=== PATIENT | female | born 1985 | race African-American/Black ===

== ENCOUNTER 2018-04-29 13:24 | Day surgery (SDC) | payer OTHER ==
[2018-04-28 16:42] VITALS: BMI 23.5
--- NOTE | 2018-04-29 13:15 | OP ---
Operative Note - Note: Operative Date: 04/29/18 Pre-Operative Diagnosis: Hyperthroidism, enlarged thyroid gland Operation: Sub-total thyroidectomy Findings: as dictated Implants: none Post-Operative Diagnosis: Same as Pre-op Surgeon: Caitlin Colindres Forestry [employer] Aide: Goyo David Anesthesiologist/TELESCOPE REPAIRER: Tl Segovia Anesthesia: General, Local (9 cc .25% Marcaine injected to incision at completion of case) Specimens Removed: Right and Left thyroid gland Estimated Blood Loss (mls): 75 (ml) Drains & Tubes with Location: GELY drain placed subcutaneously Fluid Volume Replaced (mls): 1 (L LR) Operative Report Dictated: Yes
--- NOTE | 2018-04-29 13:23 | SURG ---
Surgery User Support Analyst Note User Support Analyst: Goyo David PA-C (Suzy) Date of Service: 04/29/18 Diagnosis: Hyperthroidism, enlarged thyroid gland Procedure: Sub-total thyroidectomy I was present for the entirety of the operative procedure. For further detail, please refer to operative report. Visit type - Case Type Case Type: Scheduled - Emergency Emergency Visit: No - New patient This patient is new to me today: Yes Date on this admission: 04/29/18 - Critical Care Critical Care patient: No
[~2018-04-29 13:24] MED LIST: BUPIVACAINE HCL/PF 2.5 MG/ML - 30 ML VIAL IJ ONE; DEXAMETHASONE SOD PHOSPHATE 4 MG/1 ML VIAL ONE; GUM MASTIC/STORAX/MSAL/ALCOHOL 1 DRP DROPSBTL MC ONE; METOPROLOL TARTRATE 5 MG/5 ML VIAL ONE; MIDAZOLAM HCL 2 MG/2 ML SINGLE DOSE VIAL ONE; ONDANSETRON 4 MG/2 ML VIAL IVPUSH PRN; ONDANSETRON 4 MG/2 ML VIAL ONE; PROPOFOL 20 ML ONE; ROCURONIUM BROMIDE 50 MG/5 ML VIAL ONE; ceFAZolin SODIUM 1 GM VIAL ONE; fentaNYL CITRATE 250 MCG/5 ML VIAL ONE
[2018-04-29] MEDS ORDERED: oxyCODONE HCL 5 MG TABLET PO PRN (13:28)
[2018-04-29] MEDS ORDERED: DOCUSATE SODIUM 100 MG CAPSULE (FP) PO PRN (13:28)
[2018-04-29] MEDS ORDERED: LACTATED RINGERS SOLUTION 1,000 ML IV SCH ×2 (13:30→14:30)
[2018-04-29] MEDS ORDERED: LEVOTHYROXINE NA 88 MCG TABLET (FP) PO ONE ×2 (13:37)
--- NOTE | 2018-04-29 14:25 | OP ---
DATE OF OPERATION: 04/29/2018 PREOPERATIVE DIAGNOSES: Hyperthyroidism status post with enlarged thyroid gland with dysphagia and respiratory compromise. POSTOPERATIVE DIAGNOSES: Hyperthyroidism status post with enlarged thyroid gland with dysphagia and respiratory compromise. OPERATIVE PROCEDURE: Subtotal thyroidectomy. SURGEON: Jd Colindres MD GARMENT FORM ASSEMBLER: Marta Barrientos____JANEY ANESTHESIA: General endotracheal intubation. This is a 32-year-old female with a known history of hyperthyroidism, was treated with propylthiouracil and now has become euthyroid. The patient has a massively swollen thyroid gland with respiratory compromise and dysphagia. After explaining the risks and benefits, the patient was brought to the operating room. Her neck was prepped and draped and placed in extension position. The platysma muscle was opened to create a flap after the thyroid isthmus to the thyroid cartilage and the pulp and to the retrosternal notch on the bottom, and midline was opened. Substrap muscle dissection was done of the thyroid gland, and the thyroid gland was then rotated medially. The middle thyroid vein and the superior thyroid vessels were initially tied with LigaSure, and the medial rotation and downward rotation of the thyroid gland was done, at which time the recurrent laryngeal nerve was clearly identified, and then, the inferior thyroid gland was then clamped, and LigaSure was used, and the thyroid gland was then taken away from the thyroid, from the tracheal cartilage. Similarly, the other side also was done of the gland, and care was taken to avoid injury to both the recurrent laryngeal nerves, and superiorly, a piece of the thyroid gland was left behind to avoid injury to the superior laryngeal nerve and also the parathyroid gland was clearly identified and left in place. The subtotal thyroidectomy was done or near total, and after adequate hemostasis, a [place] was introduced, brought through the wound. The strap muscles were closed, and local with Marcaine was injected. Patient went to the recovery room, extubated with no complications. JD COLINDRES M.D. [id number]
[2018-04-29] MEDS ORDERED: ONDANSETRON 4 MG/2 ML VIAL ONE (14:48)
[2018-04-29] MEDS ORDERED: LEVOTHYROXINE NA 112 MCG TABLET (FP) PO ONE (15:00)
[2018-04-29] MEDS: oxyCODONE HCL 5 MG TABLET PO PRN ×2 (16:51→21:09)
[2018-04-30] MEDS: oxyCODONE HCL 5 MG TABLET PO PRN ×2 (00:56→13:53)
[2018-04-30] MEDS ORDERED: LEVOTHYROXINE NA 88 MCG TABLET (FP) PO SCH ×2 (07:00)
[2018-04-30] MEDS ORDERED: LEVOTHYROXINE NA 112 MCG TABLET (FP) PO SCH (07:00)
--- NOTE | 2018-04-30 07:52 | PN ---
Progress Note (short form) - Note Progress Note: 32yo F s/p Total thyroidectomy POD 1, pt seen and examined at bedside. Pt states that she is feeling well only complaining of some mild neck pain. Pt denies fever, chills, n/v. Pt tolerating PO and ambulating well. Last Vital Signs Temp Pulse Resp BP Pulse Ox 97.9 F 66 18 117/64 100 04/30/18 05:00 04/30/18 05:00 04/30/18 05:00 04/30/18 05:00 04/29/18 21:00 Abnormal Lab Results 04/29/18 16:00 Calcium 8.3 L PE: Gen: A&O x3 Resp: breathing comfortably Neck: incision is clean, with no erythema or discharge. Drain in place with serosanguinous drainage. Output: 85ml Problem List - Problems (1) S/P thyroidectomy Assessment/Plan: Plan -will advance diet -OOB/ambulate -D/c drain -will follow up labs if good will plan for discharge this afternoon Code(s): Z98.890 - OTHER SPECIFIED POSTPROCEDURAL STATES
[2018-04-30 08:44] LABS: BASO % 0.3 % (0-2.0); EOS % 0.5 % (0-4.5); HEMATOCRIT 34.5 % (32.4-45.2); LYMPH % 24.2 % (8-40); MCH 25.3 pg (25.7-33.7); MCHC 31.8 g/dl (32.0-36.0); MEAN CELL VOLUME 79.4 fl (80-96); MEAN PLT VOLUME 9.3 fl (7.5-11.1); MONO % 6.3 % (3.8-10.2); NEUT % 68.7 % (42.8-82.8); PLATELET COUNT 158 K/MM3 (134-434); RBC 4.34 M/mm3 (3.60-5.2); RDW 14.2 % (11.6-15.6)
[2018-04-30 08:46] LABS: ANION GAP 9 MMOL/L (8-16); BLOOD UREA NITROGEN 10 mg/dl (7-18); CHLORIDE 98 mmol/L (98-107); CO2 25 mmol/L (22-28); CREATININE 0.6 mg/dl (0.6-1.3); GLUCOSE,RANDOM 88 mg/dl (74-106); POTASSIUM 3.6 mmol/L (3.5-5.1); SODIUM 132 mmol/L (136-145)
--- NOTE | 2018-04-30 09:52 | PN ---
Progress Note (short form) - Note Progress Note: 32F POD1 s/p subtotal thyroidectomy under GA-ETT. Pt states that pain is well controlled and does not report any anesthetic complications. AVSS. Motor and sensory exam intact in bilateral lower extremities. Continue current regimen.
[2018-04-30 16:44] VITALS: BP 123/60; PULSE 83; TEMP 98.7
--- NOTE | 2018-05-02 11:28 | PATH ---
Surgical Pathology Report Patient Name: CORTEZ ROWE [facility]. Rec. #: [id number] /Age/Gender: 1985 (Age: 32) / F Account: [id number] Location: [facility] AMBULATORY Taken: 04/29/2018 Received: 04/29/2018 Reported: 05/02/2018 Physicians: Jd Colindres M.D. 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 MARGINS ARE UNINVOLVED BY CARCINOMA. EXTRATHYROIDAL EXTENSION NOT IDENTIFIED. LYMPHOVASCULAR INVASION NOT IDENTIFIED. NODULAR HYPERPLASIA WITH CHRONIC LYMPHOCYTIC THYROIDITIS ARE PRESENT. PATHOLOGIC STAGE (pTNM): pT1a pNx ALSO SEE THYROID CANCER CASE SUMMARY BELOW. This case was discussed with Dr. Sonali Colindres on May 02, 2018. Comments Thyroid: Surgical Pathology Cancer Case Summary (Based on AJCC 8 th edition) Procedure Subtotal thyroidectomy (right and left thyroid gland) Tumor Focality _x_ Unifocal Tumor Site _x_ Left lobe Tumor Size Greatest dimension (centimeters): 0.3cm Histologic Type Papillary Carcinomas _x_ Papillary carcinoma, classic (usual, conventional) Margins _x_ Uninvolved by carcinoma Angioinvasion (Vascular Invasion) _x_ Not present Lymphatic Invasion _x_ Not identified Extrathyroidal Extension _x_ Not identified Regional Lymph Nodes _x_ No lymph nodes submitted or found Pathologic Stage Classification (pTNM, AJCC 8th Edition) For Papillary, Follicular, Poorly Differentiated, Hurthle Cell and Anaplastic Thyroid Carcinoma Primary Tumor (pT) _x_ pT1a: Tumor =1 cm in greatest dimension limited to the thyroid Regional Lymph Nodes (pN) _x_ pNX: Regional lymph nodes cannot be assessed Additional Pathologic Findings _x_ Adenomatoid nodule(s) or nodular follicular disease (eg, nodular hyperplasia, goitrous thyroid) _x_ Thyroiditis (specify type): Chronic lymphocytic thyroiditis Electronically Signed Dora Coburn M.D. Microscopic Description Gross Description Received in formalin and "thyroid," is a 71 g total thyroidectomy specimen including a right lobe (6.4 x 3.4 x 2.2 cm), a left lobe (6.3 x 3.2 x 2.5 cm), a pyramidal lobe (3.0 x 2.1 x 1 2 cm) and an isthmus (2.1 x 2.1 x 1.0 cm). The outer surface is perales-brown with a focal defect. The specimen is inked as follows: Right red, left black, pyramidal blue and isthmus green. Sectioning reveals multiple heterogeneous perales colloid nodules. There is a 0.4 cm in greatest dimension solid perales, suspicious nodule in the upper pole of the left lobe. The remaining thyroid parenchyma is red-brown and beefy. Airplane Mechanic Apprentice sections are submitted in 19 as follows: 1-left upper lobe suspicious nodule 7-4-qexxvhracd left lobe from superior to inferior; 8-9-Isthmus from left to right; 84-50-vkbjohtvb lobe from superior to inferior; 13-19-right lobe from superior to inferior. 04/30/201804/30/2018
== END 2018-04-30 16:50 | disposition home or self-care (01) ==
LOC: FASU 13:24 → FM/S 13:24 → FASU 04-30 16:50
PROVIDERS: ATTEND Surgery Vascular Surgery
PROC: 0GTK0ZZ Resection of Thyroid Gland, Open Approach (ICD-10-PCS; principal; 2018-04-29 11:39)
DX: E05.00 Thyrotoxicosis with diffuse goiter without thyrotoxic crisis or storm (principal); R13.10 Dysphagia, unspecified; R06.03 Acute respiratory distress
CPT/HCPCS: 36415; 80048; 82310; 82330; 84703; 85025; 88307-TC; 94760